=== PATIENT | male | born 1985 | race Caucasian/White ===

== ENCOUNTER 2022-07-18 15:30 | Emergency (ER) | payer OTHER ==
[~2022-07-18] VITALS: Ht 185.4 cm; Wt 100.0 kg
[2022-07-18 16:07] LABS: BASO # 0.1 10^3/uL (0.0-0.2); BASO % 0.8 % (0.0-1.0); EOS # 0.2 10^3/uL (0.0-0.5); EOS % 2.7 % (0.0-3.0); HEMATOCRIT 44.1 % (42.0-52.0); HEMOGLOBIN 15.4 g/dl (13.5-17.5); LYMPH # 1.7 10^3/uL (1.5-5.0); LYMPH % 23.3 % (24.0-44.0); MEAN CORPUSCULAR HEMOGLOBIN 31.5 pg (27.0-33.0); MEAN CORPUSCULAR HGB CONC 34.9 g/dl (32.0-36.5); MEAN CORPUSCULAR VOLUME 90.2 fl (80.0-96.0); MONO # 0.7 10^3/uL (0.0-0.8); NEUTROPHILS # 4.7 10^3/uL (1.5-8.5); NEUTROPHILS % 63.9 % (36.0-66.0); PLATELET COUNT, AUTOMATED 244 10^3/uL (150-450); RED BLOOD COUNT 4.89 10^6/uL (4.30-6.10); WHITE BLOOD COUNT 7.4 10^3/uL (4.0-10.0)
[2022-07-18] MEDS ORDERED: ISOVUE-370 76% 100ML VIAL As Ordered ONE (16:07)
[2022-07-18 16:46] LABS: ALBUMIN 3.9 G/DL (3.2-5.2); BILIRUBIN,DIRECT 0.2 MG/DL (<0.4); BILIRUBIN,TOTAL 0.5 MG/DL (0.3-1.2); FREE T4 1.05 NG/DL (0.89-1.76); MAGNESIUM LEVEL 1.8 MG/DL (1.8-2.4); PHOSPHORUS LEVEL 3.5 MG/DL (2.5-4.9); THYROID STIMULATING HORMONE 1.137 uIU/ML (0.55-4.78); TOTAL PROTEIN 6.8 G/DL (5.7-8.2)
[2022-07-18 18:00] VITALS: BP 116/81
[2022-07-18] MEDS ORDERED: levETIRAcetam 250MG TABLET (KEPPRA) PO ONE (18:25)
[2022-07-18] MEDS ORDERED: KEPP1TAB PO (18:25)
== END 2022-07-18 18:53 | disposition home or self-care (01) ==
LOC: M ED 15:30 → EDBD 15:30 → M ED 18:53
DX: M23.91 Unspecified internal derangement of right knee (principal); R56.9 Unspecified convulsions; M54.9 Dorsalgia, unspecified; K21.9 Gastro-esophageal reflux disease without esophagitis; Z88.0 Allergy status to penicillin
CPT/HCPCS: 36415; 70450; 71260; 72125; 73502; 73552; 73564; 74177; 80047; 80076; 83735; 84100; 84439; 84443; 85025; 93005; 93041; 94760; 99285; Q9967